=== PATIENT | female | born 1945 | race Caucasian/White ===

== ENCOUNTER 2021-04-01 06:11 | Day surgery (SDC) | payer OTHER ==
[~2021-04-01] VITALS: Ht 157.5 cm; Wt 90.7 kg
[2021-04-01] MEDS ORDERED: diphenhydrAMINE 50 MG/ML VIAL ONE (08:40)
[2021-04-01] MEDS ORDERED: fentaNYL citrate 0.05 MG/ML VIAL ONE (08:40)
[2021-04-01] MEDS ORDERED: MIDAZOLAM 5 MG/5 ML VIAL ONE (08:41)
[2021-04-01] MEDS ORDERED: MIDAZOLAM 2 MG/2 ML VIAL IVP ONE (14:45)
[2021-04-01] MEDS ORDERED: fentaNYL citrate 0.05 MG/ML VIAL IVP ONE (14:45)
== END 2021-04-01 09:40 | disposition home or self-care (01) ==
LOC: MOR 06:11 → MMU 06:11 → MOR 09:40
PROVIDERS: ATTEND Internal Medicine Gastroenterology
DX: R10.13 Epigastric pain (principal); K21.9 Gastro-esophageal reflux disease without esophagitis; K29.70 Gastritis, unspecified, without bleeding; Z79.84 Long term (current) use of oral hypoglycemic drugs; Z79.899 Other long term (current) drug therapy; Z20.822 Contact with and (suspected) exposure to COVID-19
CPT/HCPCS: 82948; 88305; 88312; 88313; 88342; J1200; J2250; J3010

== ENCOUNTER 2021-10-28 07:50 | Day surgery (SDC) | payer OTHER ==
[~2021-10-28] VITALS: Ht 152.4 cm; Wt 90.7 kg
[2021-10-28] MEDS ORDERED: diphenhydrAMINE 50 MG/ML VIAL ONE (09:24)
[2021-10-28] MEDS ORDERED: fentaNYL citrate 0.05 MG/ML VIAL ONE (09:25)
[2021-10-28] MEDS ORDERED: MIDAZOLAM 5 MG/5 ML VIAL ONE (09:25)
[2021-10-28] MEDS ORDERED: fentaNYL citrate 0.05 MG/ML VIAL IVP ONE (12:00)
[2021-10-28] MEDS ORDERED: MIDAZOLAM 2 MG/2 ML VIAL IVP ONE (12:00)
== END 2021-10-28 10:45 | disposition home or self-care (01) ==
LOC: MDS 07:50 → MMU 07:51 → MDS 10:45
PROVIDERS: ATTEND Internal Medicine Gastroenterology
DX: Z12.11 Encounter for screening for malignant neoplasm of colon (principal); K63.5 Polyp of colon; K57.30 Diverticulosis of large intestine without perforation or abscess without bleeding; K21.9 Gastro-esophageal reflux disease without esophagitis; I10 Essential (primary) hypertension; E78.5 Hyperlipidemia, unspecified; E11.9 Type 2 diabetes mellitus without complications; M19.90 Unspecified osteoarthritis, unspecified site; Z86.010 Personal history of colon polyps; Z88.5 Allergy status to narcotic agent; Z79.84 Long term (current) use of oral hypoglycemic drugs; Z79.899 Other long term (current) drug therapy; Z20.822 Contact with and (suspected) exposure to COVID-19
CPT/HCPCS: 45380; 87426; 88305; J2250; J3010; J1200